=== PATIENT | male | born 1990 | race Two or more races ===

== ENCOUNTER 2017-08-29 10:30 | Emergency (ER) | payer MEDICAID, OTHER ==
[~2017-08-29] VITALS: Ht 177.8 cm; Wt 81.6 kg
--- NOTE | 2017-08-29 10:24 | Emergency Room Report ---
History of Present Illness General Source: Patient (Augie Bridges MD) Present Illness HPI Patient is a 27-year-old male brought in by [employer] and EMS after increased bilateral foot pain. Increased reported suicidal thoughts. The patient states that he the had been taking of walking into traffic. The patient prior history of psychiatric disease. The patient was placed on a 5150 for danger to self by [employer]. The patient prior history of bipolar disorder. Patient stated he been walking a great deal the past few days. He denies any recent trauma. The patient states he was previously taking psychiatric medicatons. The patient denies taking any medications currently. (Augie Bridges MD) Allergies: Coded Allergies: No Known Allergies (Unverified , 08/29/17) Patient History Past Medical History: see triage record Reviewed Nursing Documentation: PMH: Agreed; PSxH: Agreed (Augie Bridges MD) Review of Systems All Other Systems: negative except mentioned in HPI (Augie Bridges MD) Physical Exam Sp02 EP Interpretation: reviewed, normal General Appearance: alert/responsive, no apparent distress, GCS 15, non-toxic Head: atraumatic Eyes: PERRL, lids + conjunctiva normal ENT: hearing intact, no angioedema Neck: supple/symm/no masses, no meningismus Respiratory: effort normal, no wheezing, chest symmetrical Cardiovascular: regular rate, rhythm, no edema Cardiovascular #2: 2+ carotid (R), 2+ carotid (L), 2+ dorsalis pedis (R), 2+ dorsalis pedis (L) Gastrointestinal: non-tender, no mass, non-distended, no rebound/guarding, normal bowel sounds Musculoskeletal: gait & station normal, strength & tone normal, normal ROM, non -tender Neurologic: normal inspection, CN II-XII intact, oriented x3, sensory intact, normal speech Skin: no rash, well hydrated Lymphatic: normal inspection (Augie Bridges MD) Medical Decision Making Diagnostic Impression: Primary Impression: Foot pain, bilateral Additional Impressions: Bipolar disorder Qualified Codes: F31.9 - Bipolar disorder, unspecified Substance abuse Suicidal behavior Qualified Codes: R46.89 - Other symptoms and signs involving appearance and behavior ER Course Patient presented for suicidal thoughts. Differential diagnoses include substance abuse, psychosis, bipolar disorder, depression, malingering. Because of complexity of patient's case laboratory testing and imaging studies were ordered.The patient does not appear to have any acute issues with his feet.Laboratory studies were ordered for medical clearance.The patient was noted to be placed on hold by [employer]. Patient is medically cleared for psych referral.Patient was given Zyprexa for bipolar disorder. Labs Test 08/29/17 10:39 White Blood Count 6.9 K/UL (4.8-10.8) Red Blood Count 5.03 M/UL (4.70-6.10) Hemoglobin 13.9 G/DL (14.2-18.0) Hematocrit 42.2 % (42.0-52.0) Mean Corpuscular Volume 84 FL (80-99) Mean Corpuscular Hemoglobin 27.7 PG (27.0-31.0) Mean Corpuscular Hemoglobin Concent 33.0 G/DL (32.0-36.0) Red Cell Distribution Width 13.0 % (11.6-14.8) Platelet Count 229 K/UL (150-450) Mean Platelet Volume 6.4 FL (6.5-10.1) Neutrophils (%) (Auto) 69.8 % (45.0-75.0) Lymphocytes (%) (Auto) 15.2 % (20.0-45.0) Monocytes (%) (Auto) 11.3 % (1.0-10.0) Eosinophils (%) (Auto) 2.6 % (0.0-3.0) Basophils (%) (Auto) 1.1 % (0.0-2.0) Sodium Level 139 MMOL/L (136-145) Potassium Level 3.6 MMOL/L (3.5-5.1) Chloride Level 103 MMOL/L (98-107) Carbon Dioxide Level 26 MMOL/L (21-32) Anion Gap 10 mmol/L (5-15) Blood Urea Nitrogen 18 mg/dL (7-18) Creatinine 1.2 MG/DL (0.55-1.30) Estimat Glomerular Filtration Rate > 60 mL/min (>60) Glucose Level 95 MG/DL (74-106) Calcium Level 8.9 MG/DL (8.5-10.1) Total Bilirubin 1.1 MG/DL (0.2-1.0) Direct Bilirubin 0.3 MG/DL (0.0-0.3) Aspartate Amino Transf (AST/SGOT) 65 U/L (15-37) Alanine Aminotransferase (ALT/SGPT) 60 U/L (12-78) Alkaline Phosphatase 123 U/L (46-116) Total Protein 8.1 G/DL (6.4-8.2) Albumin 4.2 G/DL (3.4-5.0) Globulin 3.9 g/dL Albumin/Globulin Ratio 1.1 (1.0-2.7) Thyroid Stimulating Hormone (TSH) 0.454 uiU/mL (0.358-3.740) Salicylates Level 2.0 ug/mL (2.8-20) Acetaminophen Level < 2 MCG/ML (10-30) Serum Alcohol < 3 mg/dL (Augie Bridges MD) ER Course Hospital Course 27 M presents for psychiatric evaluation. on 5149 hold patient initially seen and evaluated by Dr. Bridges; please see his note for full history and physical Clinical course labs unremarkable, Utox + multiple substances Patient is medically cleared and pending psychiatric evaluation. i. I feel this is a highly complex case requiring extensive working including EKG/Rhythm strip, Xray/CT/US, Blood/urine lab work, repeat exams while in ED, and administration of strong opiates/narcotics for pain control, admission to hospital or close patient follow up. Labs Test 08/29/17 10:39 08/29/17 14:54 White Blood Count 6.9 K/UL (4.8-10.8) Red Blood Count 5.03 M/UL (4.70-6.10) Hemoglobin 13.9 G/DL (14.2-18.0) Hematocrit 42.2 % (42.0-52.0) Mean Corpuscular Volume 84 FL (80-99) Mean Corpuscular Hemoglobin 27.7 PG (27.0-31.0) Mean Corpuscular Hemoglobin Concent 33.0 G/DL (32.0-36.0) Red Cell Distribution Width 13.0 % (11.6-14.8) Platelet Count 229 K/UL (150-450) Mean Platelet Volume 6.4 FL (6.5-10.1) Neutrophils (%) (Auto) 69.8 % (45.0-75.0) Lymphocytes (%) (Auto) 15.2 % (20.0-45.0) Monocytes (%) (Auto) 11.3 % (1.0-10.0) Eosinophils (%) (Auto) 2.6 % (0.0-3.0) Basophils (%) (Auto) 1.1 % (0.0-2.0) Sodium Level 139 MMOL/L (136-145) Potassium Level 3.6 MMOL/L (3.5-5.1) Chloride Level 103 MMOL/L (98-107) Carbon Dioxide Level 26 MMOL/L (21-32) Anion Gap 10 mmol/L (5-15) Blood Urea Nitrogen 18 mg/dL (7-18) Creatinine 1.2 MG/DL (0.55-1.30) Estimat Glomerular Filtration Rate > 60 mL/min (>60) Glucose Level 95 MG/DL (74-106) Calcium Level 8.9 MG/DL (8.5-10.1) Total Bilirubin 1.1 MG/DL (0.2-1.0) Direct Bilirubin 0.3 MG/DL (0.0-0.3) Aspartate Amino Transf (AST/SGOT) 65 U/L (15-37) Alanine Aminotransferase (ALT/SGPT) 60 U/L (12-78) Alkaline Phosphatase 123 U/L (46-116) Total Protein 8.1 G/DL (6.4-8.2) Albumin 4.2 G/DL (3.4-5.0) Globulin 3.9 g/dL Albumin/Globulin Ratio 1.1 (1.0-2.7) Thyroid Stimulating Hormone (TSH) 0.454 uiU/mL (0.358-3.740) Salicylates Level 2.0 ug/mL (2.8-20) Acetaminophen Level < 2 MCG/ML (10-30) Serum Alcohol < 3 mg/dL Urine Opiates Screen Negative (NEGATIVE) Urine Barbiturates Screen Negative (NEGATIVE) Phencyclidine (PCP) Screen Negative (NEGATIVE) Urine Amphetamines Screen Positive (NEGATIVE) Urine Benzodiazepines Screen Negative (NEGATIVE) Urine Cocaine Screen Negative (NEGATIVE) Urine Marijuana (THC) Screen Positive (NEGATIVE) (Polo Gagnon MD) ER Course Patient was signed out to me. He presents with suicidal mediation and substance abuse. He was placed on a 5150 by police. He slept comfortably through the night here. He was medically clear for psychiatric evaluation. [facility] in [place] accept the patient for transfer. (ELIAS CHAPA M.D.) Status: improved (Augie Bridges MD) Status: improved (Polo Gagnon MD) Disposition: XFER TO PSYCH HOSP/UNIT Condition: Stable Augie Bridges MD Aug 29, 2017 10:24 Polo Gagnon MD Aug 29, 2017 16:01 ELIAS CHAPA M.D. Aug 30, 2017 01:57
[2017-08-29 11:06] LABS: BASOPHILS % (AUTO) 1.1 % (0.0-2.0); EOSINOPHILS % (AUTO) 2.6 % (0.0-3.0); HEMATOCRIT 42.2 % (42.0-52.0); HEMOGLOBIN 13.9 G/DL (14.2-18.0); LYMPHOCYTES % (AUTO) 15.2 % (20.0-45.0); MEAN CORPUSCULAR VOLUME 84 FL (80-99); MONOCYTES % (AUTO) 11.3 % (1.0-10.0); NEUTROPHILS % (AUTO) 69.8 % (45.0-75.0); PLATELET COUNT 229 K/UL (150-450); RED BLOOD COUNT 5.03 M/UL (4.70-6.10); WHITE BLOOD COUNT 6.9 K/UL (4.8-10.8)
[2017-08-29 11:16] LABS: ANION GAP 10 mmol/L (5-15); BLOOD UREA NITROGEN 18 mg/dL (7-18); CALCIUM 8.9 MG/DL (8.5-10.1); CARBON DIOXIDE 26 MMOL/L (21-32); CHLORIDE 103 MMOL/L (98-107); CREATININE 1.2 MG/DL (0.55-1.30); POTASSIUM 3.6 MMOL/L (3.5-5.1); SODIUM 139 MMOL/L (136-145)
[2017-08-29 11:31] LABS: ALANINE AMINOTRANSFERASE 60 U/L (12-78); ALBUMIN 4.2 G/DL (3.4-5.0); ALBUMIN/GLOBULIN RATIO 1.1 (1.0-2.7); ALKALINE PHOSPHATASE 123 U/L (46-116); ASPARTATE AMINO TRANSFERASE 65 U/L (15-37); BILIRUBIN,TOTAL 1.1 MG/DL (0.2-1.0)
[2017-08-29 11:35] LABS: BILIRUBIN,DIRECT 0.3 MG/DL (0.0-0.3)
[2017-08-29 12:12] VITALS: BP 124/80
[2017-08-29 15:25] VITALS: BP 142/77
[2017-08-30 01:53] VITALS: BP 120/73
[2017-08-30 02:30] VITALS: BP 120/73
== END 2017-08-30 02:31 ==
LOC: EDBD 10:30 → EMR 11:00
DX: M79.672 Pain in left foot (principal); M79.671 Pain in right foot; F31.9 Bipolar disorder, unspecified; F19.10 Other psychoactive substance abuse, uncomplicated; R45.851 Suicidal ideations
CPT/HCPCS: 36415; 80053; 80307; 82248; 84443; 85025; 99284; G0480; 80329